=== PATIENT | female | born 1985 | race African-American/Black ===

== ENCOUNTER 2018-03-09 14:46 | Emergency (ER) | payer MEDICARE, MEDICAID ==
[~2018-03-09] VITALS: Ht 165.1 cm; Wt 80.0 kg
[~2018-03-09 14:46] MED LIST: CLONAZEPAM0.5 MG PO; DEP0PROVERA; LORTAB 5 OR; NO HOME MEDS; PHENERGAN SUPP RE; REMERON15 MG OR; ROBITUSS11 OR; TORADOL OR; TORADOL PO; ULTRAM50 MG OR; ZPAK OR; ZPAK PO
[2018-03-09] MEDS ORDERED: RISPERDAL2 MG PO (14:58)
[2018-03-09] MEDS ORDERED: ERYTHROMYCIN O3.5 GM OU (15:12)
[2018-03-09] MEDS ORDERED: KEFLEX500 M1 PO (15:12)
[2018-03-09 15:21] VITALS: BP 140/97
== END 2018-03-09 15:24 | disposition home or self-care (01) ==
LOC: ED 14:46
DX: H00.022 Hordeolum internum right lower eyelid (principal); F31.9 Bipolar disorder, unspecified; F41.0 Panic disorder [episodic paroxysmal anxiety]; F17.290 Nicotine dependence, other tobacco product, uncomplicated

== ENCOUNTER 2019-01-19 11:47 | Emergency (ER) | payer MEDICARE, MEDICAID ==
[~2019-01-19] VITALS: Ht 165.1 cm; Wt 85.0 kg
[~2019-01-19 11:47] MED LIST changes: +ERYTHROMYCIN O3.5 GM OU; +KEFLEX500 M1 PO; +RISPERDAL0.5 MG PO
[2019-01-19] MEDS ORDERED: PRAVACHOL20 MG PO (12:18)
[2019-01-19 12:57] LABS: ALBUMIN 4.3 g/dL (3.2-5.0); ALKALINE PHOSPHATASE 110 u/l (38-126); ANION GAP 16 (6-22 (CALC)); BILIRUBIN, TOTAL 0.5 mg/dL (0.0-1.4); BUN 7 mg/dL (7-17); BUN/CREATININE RATIO 12 (12-20 (CALC)); CARBON DIOXIDE 18 mmol/l (22-30); CHLORIDE 109 mmol/l (95-108); CREATININE 0.6 mg/dL (0.5-1.0); GFR > 60 ML/MIN (>=60 (CALC)); GFR FOR AFR.AMER. > 60 ML/MIN (>=60 (CALC)); IMMATURE GRANULOCYTES 0.4 % (0.0-5.0); LIPASE 82 u/l (23-300); MEAN CORPUSCULAR HGB 30.5 pG CALC (26.0-32.0); MEAN CORPUSCULAR HGB CONC 34.9 g/L CALC (32.0-36.0); NEUT# 5.54 thou/uL (2.00-7.15); POTASSIUM 4.7 mmol/l (3.5-5.1); RED BLOOD COUNT 5.71 mill/uL (4.20-5.60); RED CELL DISTRI WIDTH 15.3 % (11.5-15.5); SGOT/AST 53 u/l (14-36); SODIUM 138 mmol/l (137-146); TOTAL PROTEIN 7.7 g/dL (6.3-8.2)
[2019-01-19 12:58] LABS: HEMOGLOBIN 17.4 g/dl (12.0-16.0)
[2019-01-19 12:59] LABS: HEMATOCRIT 49.9 % (37.0-47.0); MEAN CELL VOLUME 87.4 fL CALC (80.0-100.0)
[2019-01-19 13:13] LABS: URINE BILIRUBIN - DIPSTICK NEGATIVE (NEGATIVE); URINE BLOOD DIPSTICK NEGATIVE (NEGATIVE); URINE COLOR YELLOW; URINE GLUCOSE - DIPSTICK NEGATIVE (NEGATIVE); URINE KETONE NEGATIVE (NEGATIVE); URINE LEUK ESTERASE NEGATIVE (NEGATIVE); URINE NITRITE - DIPSTICK NEGATIVE (Negative); URINE PH 5.5 (4.5-8.0); URINE PROTEIN - DIPSTICK NEGATIVE (NEG-TRACE); URINE SPECIFIC GRAVITY 1.025; URINE UROBILINOGEN - DIPSTICK 0.2 E.U./dL (0.2)
[2019-01-19 15:15] VITALS: BP 115/78
== END 2019-01-19 15:15 | disposition home or self-care (01) ==
LOC: ED 11:47
DX: R10.32 Left lower quadrant pain (principal); F17.200 Nicotine dependence, unspecified, uncomplicated
CPT/HCPCS: Q9967

== ENCOUNTER 2019-08-28 | Emergency (ER) | payer MEDICARE ==
[~2019-08-28] MED LIST changes: +PRAVACHOL20 MG PO
[2019-08-28 11:44] LABS: HEMATOCRIT 54.4 % (37.0-47.0); HEMOGLOBIN 18.7 g/dl (12.0-16.0); IMMATURE GRANULOCYTES 0.3 % (0.0-5.0); MEAN CELL VOLUME 88.2 fL CALC (80.0-100.0); MEAN CORPUSCULAR HGB 30.3 pG CALC (26.0-32.0); MEAN CORPUSCULAR HGB CONC 34.4 g/L CALC (32.0-36.0); NEUT# 2.7 thou/uL (2.00-7.15); RED BLOOD COUNT 6.17 mill/uL (4.20-5.60); RED CELL DISTRI WIDTH 14.6 % (11.5-15.5)
[2019-08-28 11:54] LABS: ALBUMIN 3.8 g/dL (3.2-5.0); ALKALINE PHOSPHATASE 94 u/l (38-126); AMYLASE 42 u/l (30-110); ANION GAP 17 (6-22 (CALC)); BILIRUBIN, TOTAL 0.6 mg/dL (0.0-1.4); BUN 5 mg/dL (7-17); BUN/CREATININE RATIO 9 (12-20 (CALC)); CHLORIDE 110 mmol/l (95-108); CREATININE 0.6 mg/dL (0.5-1.0); GFR > 60 ML/MIN (>=60 (CALC)); GFR FOR AFR.AMER. > 60 ML/MIN (>=60 (CALC)); POTASSIUM 4.1 mmol/l (3.5-5.1); SGOT/AST 59 u/l (14-36); SODIUM 137 mmol/l (137-146); TOTAL PROTEIN 7.3 g/dL (6.3-8.2)
[2019-08-28 11:59] LABS: CARBON DIOXIDE 14 mmol/l (22-30)
[2019-08-28 13:22] LABS: URINE BILIRUBIN - DIPSTICK NEGATIVE (NEGATIVE); URINE BLOOD DIPSTICK NEGATIVE (NEGATIVE); URINE COLOR YELLOW; URINE GLUCOSE - DIPSTICK NEGATIVE (NEGATIVE); URINE KETONE TRACE mg/dL (NEGATIVE); URINE LEUK ESTERASE NEGATIVE (Negative); URINE NITRITE - DIPSTICK POSITIVE (Negative); URINE PH 5.5 (4.5-8.0); URINE PROTEIN - DIPSTICK NEGATIVE (NEG-TRACE); URINE SPECIFIC GRAVITY >=1.030
[2019-08-28 13:23] LABS: URINE CLARITY CLOUDY
[2019-08-28 13:24] LABS: URINE AMORPH SEDIMENT MANY hpf (NONE-FEW); URINE BACTERIA FEW hpf; URINE EPITHELIAL CELLS FEW EPI/hpf (0-FEW)
[2019-08-28] MEDS ORDERED: METRONIDAZOL500 MG PO (13:40)
[2019-08-28] MEDS ORDERED: CIPROFLOXACN500 MG PO (13:40)
[2019-08-28] MEDS ORDERED: ZOFRAN4 MG/TAB PO (13:42)
== END 2019-08-28 15:13 | disposition home or self-care (01) ==
PROVIDERS: Family Medicine
DX: K50.10 Crohn's disease of large intestine without complications (principal); F17.210 Nicotine dependence, cigarettes, uncomplicated
CPT/HCPCS: Q9967

== ENCOUNTER 2024-03-05 21:05 | Emergency (ER) | payer MEDICARE, MEDICAID ==
[~2024-03-05] VITALS: Ht 165.1 cm; Wt 66.0 kg
[~2024-03-05 21:05] MED LIST changes: +CIPROFLOXACN500 MG PO; +METRONIDAZOL500 MG PO; +ZOFRAN4 MG/TAB PO
[2024-03-05] MEDS ORDERED: SODIUM CHLORIDE 0.9% 1,000 ML IV STA (21:23)
[2024-03-05] MEDS ORDERED: KETOROLAC TROMETHAMINE 30 MG/ML SDV IV ONE (21:25)
[2024-03-05] MEDS ORDERED: PROMETHAZINE HCL 25 MG/ML AMP IV ONE (21:25)
[2024-03-05 21:44] LABS: BASO% 0.2 % (0-3); HEMATOCRIT 55.6 % (37.0-47.0); IMMATURE GRANULOCYTES 0.1 % (0.0-5.0); LYMPH% 36.4 % (15-41); MEAN CELL VOLUME 91.6 fL CALC (80.0-100.0); MEAN CORPUSCULAR HGB 31.3 pG CALC (26.0-32.0); MEAN CORPUSCULAR HGB CONC 34.2 g/dL CAL (32.0-36.0); MONO% 7.9 % (2-13); NEUT# 5.42 thou/uL (2.00-7.15); NEUT% 54.4 % (42-76); RED BLOOD COUNT 6.07 mill/uL (4.20-5.60); RED CELL DISTRI WIDTH 13.4 % (11.5-15.5)
[2024-03-05 21:49] VITALS: BP 131/103
[2024-03-05 21:54] LABS: HCG SERUM/URINE (NEG/POS) NEGATIVE (NEGATIVE)
[2024-03-05 21:57] LABS: ALBUMIN 4.7 g/dL (3.2-5.0); BILIRUBIN, TOTAL 0.3 mg/dL (0.02-1.3); CREATININE 0.6 mg/dL (0.5-1.0); POTASSIUM 3.9 mmol/l (3.5-5.1); TOTAL PROTEIN 8.2 g/dL (6.3-8.2)
[2024-03-05 22:00] VITALS: BP 125/94
[2024-03-05 22:31] LABS: URINE BILIRUBIN - DIPSTICK Negative (NEGATIVE); URINE BLOOD DIPSTICK Negative (NEGATIVE); URINE GLUCOSE - DIPSTICK Negative (NEGATIVE); URINE KETONE Trace mg/dL (NEGATIVE); URINE LEUK ESTERASE Negative (NEGATIVE); URINE NITRITE - DIPSTICK Negative (Negative); URINE PROTEIN - DIPSTICK Trace mg/dL (NEG-TRACE); URINE SPECIFIC GRAVITY 1.025; URINE UROBILINOGEN - DIPSTICK 0.2 E.U./dL (0.2)
[2024-03-05 22:32] LABS: URINE COLOR Yellow
[2024-03-05] MEDS ORDERED: PROMETHAZINE HY25 M1 PO (22:46)
[2024-03-05 23:07] VITALS: BP 125/94
== END 2024-03-05 23:07 | disposition home or self-care (01) ==
LOC: ED 21:05
PROVIDERS: Family Medicine
DX: B34.9 Viral infection, unspecified (principal); D75.1 Secondary polycythemia; I10 Essential (primary) hypertension; F31.9 Bipolar disorder, unspecified; F17.200 Nicotine dependence, unspecified, uncomplicated; Z20.822 Contact with and (suspected) exposure to COVID-19

== ENCOUNTER 2024-06-27 11:07 | Emergency (ER) | payer MEDICARE, MEDICAID ==
[~2024-06-27] VITALS: Ht 165.1 cm; Wt 68.0 kg
[2024-06-27] VITALS (10 sets, daily range): BP systolic 109–130; BP diastolic 79–95
[~2024-06-27 11:07] MED LIST changes: +PROMETHAZINE HY25 M1 PO
[2024-06-27] MEDS ORDERED: LISINOPRIL10 MG PO (11:22)
[2024-06-27] MEDS ORDERED: ONDANSETRON HCl 4 MG/2 ML SDV IV ONE (12:10)
[2024-06-27 12:30] LABS: ALBUMIN 4.8 g/dL (3.2-5.0); CREATININE 0.7 mg/dL (0.5-1.0); POTASSIUM 4.4 mmol/l (3.5-5.1); TOTAL PROTEIN 8.3 g/dL (6.3-8.2)
[2024-06-27 12:41] LABS: BASO% 0.3 % (0-3); EOS% 0.9 % (0-8); HEMATOCRIT 49.3 % (37.0-47.0); HEMOGLOBIN 16.3 g/dl (12.0-16.0); IMMATURE GRANULOCYTES 0.1 % (0.0-5.0); LYMPH% 34.2 % (15-41); MEAN CELL VOLUME 93.4 fL CALC (80.0-100.0); MEAN CORPUSCULAR HGB 30.9 pG CALC (26.0-32.0); MEAN CORPUSCULAR HGB CONC 33.1 g/dL CAL (32.0-36.0); MONO% 5.1 % (2-13); NEUT# 4.55 thou/uL (2.00-7.15); NEUT% 59.4 % (42-76); RED BLOOD COUNT 5.28 mill/uL (4.20-5.60); RED CELL DISTRI WIDTH 15.5 % (11.5-15.5)
[2024-06-27 12:43] LABS: BILIRUBIN, TOTAL 0.8 mg/dL (0.02-1.3)
[2024-06-27] MEDS ORDERED: SODIUM CHLORIDE 0.9% 1,000 ML IV ONE (12:55)
[2024-06-27] MEDS ORDERED: ORPHENADRINE CITRATE 30 MG/ML AMP IV ONE (13:30)
[2024-06-27] MEDS ORDERED: BACLOFEN10 MG PO (13:36)
[2024-06-27] MEDS ORDERED: NAPROXEN500 MG PO (13:36)
[2024-06-27] MEDS ORDERED: PREDNISONE20 MG PO (13:36)
== END 2024-06-27 13:55 | disposition home or self-care (01) ==
LOC: ED 11:07
PROVIDERS: Nurse Practitioner Family
DX: M54.12 Radiculopathy, cervical region (principal); E86.0 Dehydration; I10 Essential (primary) hypertension; F31.9 Bipolar disorder, unspecified; F17.200 Nicotine dependence, unspecified, uncomplicated; Z20.822 Contact with and (suspected) exposure to COVID-19
CPT/HCPCS: J2360; J2405